=== PATIENT | female | born 1980 | race Caucasian/White ===

== ENCOUNTER 2017-03-26 13:18 | Emergency (ER) | payer SELFPAY ==
[~2017-03-26] VITALS: Ht 154.9 cm; Wt 77.1 kg
--- NOTE | ~2017-03-26 | CT71 ---
[facility] A Service of [facility] RADIOLOGY TEXT RESULTS PATIENT: ROMEO YUEN LOCATION: [facility] : 76 UNIT #: [id number] AGE: [address]: Momo Chavez MD SEX: F ORDER DR: [id number] [facility] [address] [place], [place] [address] [id number] E MR#: [id number] #: [id number] NAME: ROMEO YUEN : 1980 SEX: F STUDY DATE/TIME: 03/26/2017 16:51 UNIT: [facility] ROOM: STUDY DESCRIPTION: CT Head Wo Contrast Attending Physician: Momo Chavez M.D. Ordering Physician: Momo Chavez M.D. MEDICAL IMAGING REPORT This report is preliminary unless electronic signature is present EXAM CT head 03/26/2017 HISTORY Seizure today x2. No prior history of seizure. TECHNIQUE CT head performed skull base through vertex without intravenous contrast. This CT exam was performed with one or more of the following radiation dose reduction techniques: automatic exposure control, adjustment of mA and/or kV according to patient size, and iterative reconstruction. COMPARISON STUDIES No prior studies for comparison. FINDINGS Brainstem unremarkable. Cerebellum and cerebral hemispheres show normal ojeda matter-white matter differentiation. No hemorrhage. No evidence of acute cortical ischemia. Midline structures nondisplaced. Basal ganglia intact. Ventricles, cisterns, sulci normal in size and contour. No intra- or extraaxial mass effect or abnormal intracranial fluid collection. The intraorbital soft tissues are unremarkable. The visualized paranasal sinuses and mastoid air cells show mucosal thickening in some bilateral mastoid air cells. No fracture. IMPRESSION 1. Brain appears normal. If it would assist in patient management, brain could be further evaluated with MRI; specifically, seizure protocol MRI. 2. Mucosal thickening in some mastoid air cells bilaterally. Correlate for any clinical indications of mastoid inflammation. [facility] A Service of [facility] RADIOLOGY TEXT RESULTS PATIENT: ROMEO YUEN LOCATION: [facility] : 76 UNIT #: [id number] AGE: [address]: Momo Chavez MD SEX: F ORDER DR: Dictated by... Raymon Bailey M.D. THIS IS AN ELECTRONICALLY VERIFIED REPORT Raymon Bailey M.D. at 03/27/2017 5:13 PM MARICHUY/piyush TD: 03/26/2017 19:57 JOB #: [id number] MEDICAL IMAGING REPORT Page 1 of 1 COPY
--- NOTE | ~2017-03-26 | EKG ---
PATIENT: ROMEO YUEN UNIT #: [id number] Ventricular Rate: 68 BPM Atrial Rate: 68 BPM P-R Interval: 144 ms QRS Duration: 86 ms Q-T Interval: 384 ms QTC Calculation(Bezet): 408 ms P [place]: 52 degrees Calculated R [place]: 1 degrees Calculated T [place]: 32 degrees Diagnosis Line: Normal sinus rhythm with sinus arrhythmia Diagnosis Line: Normal ECG Diagnosis Line: When compared with ECG of 13-MAY-2012 12:59, Diagnosis Line: Questionable change in QRS axis Diagnosis Line: Confirmed by KELLY SMITH MD ([id number]) on 03/26/2017 Diagnosis Line: 7:28:06 PM INTERPRETING MD: SARAH SOTOMAYOR
[~2017-03-26 13:18] MED LIST: CIPRO PO; NO MEDICATIONS; PERCOCET5/325 PO
[2017-03-26 14:41] LABS: BASOPHIL# 0.1 X10e3 (0-0.3); BASOPHIL% 0.6 % (0-2.5); EOSINOPHIL# 0.1 X10e3 (0-0.7); EOSINOPHIL% 0.6 % (0.0-7.0); HEMATOCRIT 43.7 % (35.0-45.0); HEMOGLOBIN 14.7 gm/dL (12.0-16.0); LYMPHOCYTE# 1.2 X10e3 (1.0-3.5); LYMPHOCYTE% 11.5 % (17.0-45.0); MEAN CELL VOLUME 88.1 FL (83-96); MEAN CORPUSCULAR HEMOGLOBIN 29.6 PG (28-34); MEAN CORPUSCULAR HGB CONC 33.6 g/dL (30-36); MEAN PLATELET VOLUME 9.1 FL (6.5-11.5); MONOCYTE# 0.5 X10e3 (0-1.0); MONOCYTE% 4.5 % (3.0-12.0); NEUTROPHIL# 8.9 X10e3 (1.5-7.1); NEUTROPHIL% 82.8 % (40-75); PLATELET COUNT 232 X10e3 (140-420); RED BLOOD COUNT 4.96 X10e (3.90-5.30); WHITE BLOOD COUNT 10.8 X10e3 (4.0-10.5)
[2017-03-26 15:01] LABS: POC - CKMB 1.1 ng/mL (0.0-7.9); POC - TROPONIN <0.05 ng/mL (<=0.05)
[2017-03-26 15:03] LABS: ALBUMIN SERUM 4.1 g/dL (3.5-5.0); ALKALINE PHOSPHATASE 39 U/L (32-92); ALT (SGPT) 14 U/L (10-40); AST (SGOT) 15 U/L (10-42); BILIRUBIN, DIRECT 0.1 mg/dL (0.0-0.2); BILIRUBIN,INDIRECT 0.8 mg/dL (0.0-0.9); BILIRUBIN,TOTAL 0.9 mg/dL (0.2-2.0); BLOOD UREA NITROGEN 18 mg/dL (9-23); BUN/CREATININE RATIO 25.71; CALCIUM SERUM 8.9 mg/dL (8.4-10.2); CARBON DIOXIDE 26 mmol/L (22-31); CHLORIDE 105 mmol/L (100-111); CREATININE SERUM 0.7 mg/dL (0.6-1.4); GLOM FILT RATE Estimated 109.9 mL/min (>60); GLUCOSE FASTING 102 mg/dL (70-110); POTASSIUM 4.3 mmol/L (3.5-5.1); PROTEIN TOTAL SERUM 6.9 g/dL (6.0-8.3); SODIUM 138 mmol/L (135-145)
[2017-03-26 15:08] LABS: ALCOHOL BLOOD <5 mg/dL (0)
[2017-03-26 16:18] LABS: DIFF IND NO
[2017-03-26 16:44] LABS: URINE SOURCE CLEAN CATCH
[2017-03-26 16:49] LABS: URINE APPEARANCE CLEAR; URINE BILIRUBIN NEG (NEG); URINE BLOOD NEG (NEG); URINE COLOR YELLOW; URINE GLUCOSE NEG (NEG); URINE KETONE NEG (NEG); URINE LEUKOCYTE ESTERASE NEG (NEG); URINE NITRATE NEG (NEG); URINE PH 5.5 (5-8); URINE PROTEIN NEG (NEG); URINE SPECIFIC GRAVITY 1.005 (1.003-1.035); URINE UROBILINOGEN 0.2 MG/DL (NEG)
[2017-03-26 16:56] LABS: CULTURE INDICATED? NO
[2017-03-26 17:01] LABS: AMPHETAMINE NEG (NEG); BARBITURATES NEG (NEG); BENZODIAZEPINES NEG (NEG); COCAINE NEG (NEG); MARIJUANA POS (NEG); OPIATES NEG (NEG); TRICYCLIC ANTIDEPRESSANTS NEG (NEG); U METHADONE NEG (NEG)
== END 2017-03-26 18:38 | disposition home or self-care (01) ==
LOC: CED 13:18
PROVIDERS: Emergency Medicine
DX: R55 Syncope and collapse (principal)
CPT/HCPCS: 36415; 70450; 80048; 80076; 80307; 81003; 82553; 82947; 84484; 84703; 85025; 93005; 96361; 96374; 99285; G0480; J2405